=== PATIENT | female | born 2000 | race Caucasian/White ===

== ENCOUNTER 2021-12-03 05:39 | Inpatient (IN) | payer OTHER ==
[~2021-12-03] VITALS: Ht 172.7 cm; Wt 142.0 kg
[2021-12-03] MEDS ORDERED: PRENATAL VITAM1 EAC8 PO (06:26)
[2021-12-03] MEDS ORDERED: ASPIRIN81 MG PO (06:26)
[2021-12-03 07:03] LABS: HEMOGLOBIN 12.9 gm/dl (12.3-15.3); RED BLOOD COUNT 4.08 M/UL (4.00-5.10); WHITE BLOOD COUNT 12.1 K/UL (4.5-11.0)
[2021-12-04 03:24] LABS: HEMOGLOBIN 11.8 gm/dl (12.3-15.3)
[2021-12-05] MEDS ORDERED: IBUPROFEN600 MG PO (09:14)
[2021-12-05] MEDS ORDERED: DOCUSATE SODIU100 MG PO (09:14)
== END 2021-12-05 13:34 | disposition home or self-care (01) | DRG 807 ==
LOC: OB 05:39
PROVIDERS: Obstetrics & Gynecology; ADMIT Obstetrics & Gynecology
PROC: 10E0XZZ Delivery of Products of Conception, External Approach (ICD-10-PCS; principal; 2021-12-03)
PROC: 10907ZC Drainage of Amniotic Fluid, Therapeutic from Products of Conception, Via Natural or Artificial Opening (ICD-10-PCS; 2021-12-03)
PROC: 3E033VJ Introduction of Other Hormone into Peripheral Vein, Percutaneous Approach (ICD-10-PCS; 2021-12-03)
PROC: 0UH97HZ Insertion of Contraceptive Device into Uterus, Via Natural or Artificial Opening (ICD-10-PCS; 2021-12-03)
PROC: 4A1H7CZ Monitoring of Products of Conception, Cardiac Rate, Via Natural or Artificial Opening (ICD-10-PCS; 2021-12-03)
PROC: 10H073Z Insertion of Monitoring Electrode into Products of Conception, Via Natural or Artificial Opening (ICD-10-PCS; 2021-12-03)
PROC: 3E0234Z Introduction of Serum, Toxoid and Vaccine into Muscle, Percutaneous Approach (ICD-10-PCS; 2021-12-03)
DX: O10.92 Unspecified pre-existing hypertension complicating childbirth (principal); Z37.0 Single live birth; O99.214 Obesity complicating childbirth; E66.9 Obesity, unspecified; Z3A.38 38 weeks gestation of pregnancy; Z28.310 Unvaccinated for COVID-19; O99.52 Diseases of the respiratory system complicating childbirth; J45.909 Unspecified asthma, uncomplicated; O99.344 Other mental disorders complicating childbirth; F41.9 Anxiety disorder, unspecified; F32.A Depression, unspecified; Z82.49 Family history of ischemic heart disease and other diseases of the circulatory system; Z83.3 Family history of diabetes mellitus; Z81.8 Family history of other mental and behavioral disorders; Z82.0 Family history of epilepsy and other diseases of the nervous system; Z23 Encounter for immunization
CPT/HCPCS: 36415; 80307; 81001; 85014; 85018; 85025; 90471; 90715; J2590